=== PATIENT | male | born 1970 | race Caucasian/White ===

== ENCOUNTER 2017-12-01 09:43 | Day surgery (SDC) | payer MEDICAID ==
[~2017-12-01] VITALS: Ht 162.6 cm; Wt 83.5 kg
[2017-12-01 10:26] LABS: BASOPHILS % 0.6 % (0.0-2.0); EOSINOPHILS % 3.2 % (0.0-5.0); HEMATOCRIT. 43.3 % (42.0-52.0); HEMOGLOBIN. 14.8 g/dL (14.0-18.0); LYMPHOCYTES % 30.9 % (20.0-50.0); MEAN CORPUSCULAR HEMOGLOBIN 31.3 pg (28.0-32.0); MEAN CORPUSCULAR VOLUME 91.7 fL (80.0-94.0); MEAN PLATELET VOLUME 9.5 fl (7.4-10.4); MONOCYTES % 8.2 % (2.0-8.0); NEUTROPHILS % 57.1 % (40.0-76.0); PLATELET 79 x1000/uL (130-400); RED BLOOD CELL COUNT 4.72 mill/uL (4.7-6.1); RED CELL DISTRIBUTION WIDTH 14.1 % (11.6-14.6)
[2017-12-01 10:38] LABS: CHLORIDE 104 mEq/L (98-107); INR 1.2; PROTHROMBIN TIME 12.7 sec (9.4-11.6)
[2017-12-01] MEDS ORDERED: INSU100I24 SQ (11:00)
[2017-12-01] MEDS ORDERED: DEXT 5%/0.45% NACL 1000ML 1,000 ML IV SCH (11:30)
[2017-12-01] MEDS ORDERED: MIDAZOLAM HCL 5 MG/5 ML VIAL ONE (11:59)
[2017-12-01] MEDS ORDERED: HYDROMORPHONE HCL/PF 2MG/ML (OR) ONE (12:02)
[2017-12-01] MEDS ORDERED: SIMETHICONE 40 MG/0.6 ML 30ML ONE (12:04)
[2017-12-01] MEDS ORDERED: MIDAZOLAM HCL 2 MG/2 ML VIAL ONE (12:21)
[2017-12-01] MEDS ORDERED: SITA100T11 PO (13:46)
[2017-12-01] MEDS ORDERED: PROP10TA10 PO (13:46)
[2017-12-01] MEDS ORDERED: INSLIS SUBCUT (13:46)
== END 2017-12-01 16:00 | disposition home or self-care (01) ==
LOC: OR 09:43
PROVIDERS: ATTEND Internal Medicine Gastroenterology
DX: I85.00 Esophageal varices without bleeding (principal); K76.6 Portal hypertension; K31.89 Other diseases of stomach and duodenum; K29.60 Other gastritis without bleeding
CPT/HCPCS: 36415; 43239; 43244; 80048; 85025; 85610; 85730; 88305; 88312; 88313; 93005; J1170; J2250

== ENCOUNTER 2018-01-12 09:24 | Day surgery (SDC) | payer MEDICAID ==
[~2018-01-12] VITALS: Ht 162.6 cm; Wt 83.5 kg
[~2018-01-12 09:24] MED LIST: INSLIS SUBCUT; INSU100I24 SQ; PROP10TA10 PO; SITA100T11 PO
[2018-01-12 10:05] LABS: BASOPHILS % 0.6 % (0.0-2.0); EOSINOPHILS % 3.6 % (0.0-5.0); HEMATOCRIT. 42.7 % (42.0-52.0); HEMOGLOBIN. 14.7 g/dL (14.0-18.0); LYMPHOCYTES % 28.8 % (20.0-50.0); MEAN CORPUSCULAR HEMOGLOBIN 30.9 pg (28.0-32.0); MEAN CORPUSCULAR VOLUME 89.7 fL (80.0-94.0); MONOCYTES % 7.9 % (2.0-8.0); NEUTROPHILS % 59.1 % (40.0-76.0); PLATELET 72 x1000/uL (130-400); RED BLOOD CELL COUNT 4.76 mill/uL (4.7-6.1); RED CELL DISTRIBUTION WIDTH 13.9 % (11.6-14.6)
[2018-01-12 10:08] LABS: CHLORIDE 108 mEq/L (98-107)
[2018-01-12 10:11] LABS: INR 1.2; PARTIAL THROMBOPLASTIN TIME 29.4 sec (23.4-31.0); PROTHROMBIN TIME 12.5 sec (9.4-11.6)
[2018-01-12] MEDS ORDERED: SODIUM CHLORIDE 0.9% 1,000 ML IV SCH (10:15)
[2018-01-12] MEDS ORDERED: MIDAZOLAM HCL 2 MG/2 ML VIAL ONE ×2 (11:13→11:28)
[2018-01-12] MEDS ORDERED: FENTANYL CITRATE/PF 50MCG/ML 2ML VIAL ONE (11:13)
[2018-01-12] MEDS ORDERED: PROPOFOL 200MG/20ML VIAL IV ONE (11:13)
[2018-01-12] MEDS ORDERED: SIMETHICONE 40 MG/0.6 ML 30ML ONE (11:22)
[2018-01-12] MEDS ORDERED: SODIUM CHLORIDE 0.9% 1,000 ML IV ONE (11:54)
[2018-01-12] MEDS ORDERED: HYDROMORPHONE HCL/PF 2MG/ML CPJ IV PRN (12:00)
[2018-01-12] MEDS ORDERED: ONDANSETRON HCL 4MG/2ML VIAL IV PRN (12:00)
[2018-01-12 12:33] VITALS: BP 176/92
== END 2018-01-12 14:20 | disposition home or self-care (01) ==
LOC: OR 09:24
PROVIDERS: ATTEND Internal Medicine Gastroenterology
DX: I85.00 Esophageal varices without bleeding (principal); K76.6 Portal hypertension; K31.89 Other diseases of stomach and duodenum; K75.81 Nonalcoholic steatohepatitis (NASH); K74.69 Other cirrhosis of liver; B15.0 Hepatitis A with hepatic coma; Z83.3 Family history of diabetes mellitus; Z79.4 Long term (current) use of insulin; Z79.899 Other long term (current) drug therapy
CPT/HCPCS: 36415; 43244; 80048; 82962; 85025; 85610; 85730; 93005; J1170; J2250; J2405; J3010; J7030; J2704

== ENCOUNTER 2018-03-09 10:24 | Day surgery (SDC) | payer MEDICAID ==
[~2018-03-09] VITALS: Ht 162.6 cm; Wt 83.5 kg
[2018-03-09 11:18] LABS: BASOPHILS % 0.6 % (0.0-2.0); EOSINOPHILS % 3.3 % (0.0-5.0); HEMATOCRIT. 41.5 % (42.0-52.0); HEMOGLOBIN. 14.4 g/dL (14.0-18.0); LYMPHOCYTES % 29.3 % (20.0-50.0); MEAN CORPUSCULAR VOLUME 89.5 fL (80.0-94.0); MEAN PLATELET VOLUME 9.8 fl (7.4-10.4); NEUTROPHILS % 58.8 % (40.0-76.0); PLATELET 72 x1000/uL (130-400); RED BLOOD CELL COUNT 4.64 mill/uL (4.7-6.1); RED CELL DISTRIBUTION WIDTH 14.1 % (11.6-14.6)
[2018-03-09 11:26] LABS: CHLORIDE 105 mEq/L (98-107)
[2018-03-09 11:28] LABS: INR 1.2; PARTIAL THROMBOPLASTIN TIME 29.5 sec (23.4-31.0); PROTHROMBIN TIME 12.6 sec (9.4-11.6)
[2018-03-09] MEDS ORDERED: MIDAZOLAM HCL 5 MG/5 ML VIAL ONE (11:58)
[2018-03-09] MEDS ORDERED: PROPOFOL 200MG/20ML VIAL IV ONE (11:58)
[2018-03-09] MEDS ORDERED: SODIUM CHLORIDE 0.9% 1,000 ML IV NR (12:43)
[2018-03-09] MEDS ORDERED: ONDANSETRON HCL 4MG/2ML VIAL IV PRN (12:45)
[2018-03-09] MEDS ORDERED: HYDROMORPHONE HCL/PF 2MG/ML CPJ IV PRN (12:45)
[2018-03-09] MEDS ORDERED: IBUPROFEN 600MG TABLET PO NR (12:45)
[2018-03-09] MEDS ORDERED: ONDANSETRON HCL 4MG/2ML VIAL ONE (12:49)
[2018-03-09 14:15] VITALS: BP 190/113
== END 2018-03-09 15:45 | disposition home or self-care (01) ==
LOC: OR 10:24
PROVIDERS: ATTEND Internal Medicine Gastroenterology
DX: K76.6 Portal hypertension (principal); K31.89 Other diseases of stomach and duodenum; E11.9 Type 2 diabetes mellitus without complications; Z79.4 Long term (current) use of insulin; K74.69 Other cirrhosis of liver; Z79.899 Other long term (current) drug therapy; Z98.890 Other specified postprocedural states; Z84.89 Family history of other specified conditions
CPT/HCPCS: 36415; 43244; 80048; 82962; 85025; 85610; 85730; J1170; J2250; J2405; J7030; J2704

== ENCOUNTER 2018-04-27 08:57 | Day surgery (SDC) | payer MEDICAID ==
[~2018-04-27] VITALS: Ht 162.6 cm; Wt 83.5 kg
[~2018-04-27 08:57] MED LIST changes: +INSU100I28 SQ
[2018-04-27] MEDS ORDERED: SODIUM CHLORIDE 0.9% 1,000 ML IV SCH (10:00)
[2018-04-27 10:06] LABS: BASOPHILS % 0.7 % (0.0-2.0); EOSINOPHILS % 4.7 % (0.0-5.0); HEMATOCRIT. 41.1 % (42.0-52.0); LYMPHOCYTES % 31.1 % (20.0-50.0); MEAN CORPUSCULAR VOLUME 91.1 fL (80.0-94.0); MEAN PLATELET VOLUME 9.7 fl (7.4-10.4); MONOCYTES % 8.3 % (2.0-8.0); NEUTROPHILS % 55.2 % (40.0-76.0); PLATELET 76 x1000/uL (130-400); RED BLOOD CELL COUNT 4.51 mill/uL (4.7-6.1); RED CELL DISTRIBUTION WIDTH 14.2 % (11.6-14.6)
[2018-04-27 10:11] LABS: CHLORIDE 108 mEq/L (98-107)
[2018-04-27 10:15] LABS: INR 1.2; PARTIAL THROMBOPLASTIN TIME 29.6 sec (23.4-31.0); PROTHROMBIN TIME 12.7 sec (9.4-11.6)
[2018-04-27] MEDS ORDERED: OMEP40CA34 PO (10:20)
[2018-04-27] MEDS ORDERED: SUCR1TAB PO (10:20)
[2018-04-27] MEDS ORDERED: SIMETHICONE 40 MG/0.6 ML 30ML ONE (10:42)
[2018-04-27] MEDS ORDERED: MIDAZOLAM HCL 5 MG/5 ML VIAL ONE (12:18)
[2018-04-27] MEDS ORDERED: PROPOFOL 200MG/20ML VIAL IV ONE (12:18)
[2018-04-27] MEDS ORDERED: LIDOCAINE HCL/PF 1% 10 MG/ML 5ML VIAL ONE (12:20)
[2018-04-27] MEDS ORDERED: SODIUM CHLORIDE 0.9% 1,000 ML IV ONE (13:07)
[2018-04-27] MEDS ORDERED: ONDANSETRON HCL 4MG/2ML VIAL IV PRN (13:15)
[2018-04-27] MEDS ORDERED: HYDROMORPHONE HCL/PF 2MG/ML CPJ IV PRN (13:15)
[2018-04-27] MEDS ORDERED: METOCLOPRAMIDE HCL 10MG/2ML VIAL IV ONE (13:45)
[2018-04-27] MEDS ORDERED: METOCLOPRAMIDE HCL 10MG/2ML VIAL IV SCH (14:15)
== END 2018-04-27 13:55 | disposition home or self-care (01) ==
LOC: OR 08:57
PROVIDERS: ATTEND Internal Medicine Gastroenterology
DX: I85.10 Secondary esophageal varices without bleeding (principal); K76.6 Portal hypertension; K31.89 Other diseases of stomach and duodenum; K74.69 Other cirrhosis of liver; K21.9 Gastro-esophageal reflux disease without esophagitis; E11.9 Type 2 diabetes mellitus without complications; Z79.899 Other long term (current) drug therapy; Z79.4 Long term (current) use of insulin; Z98.890 Other specified postprocedural states; Z84.89 Family history of other specified conditions
CPT/HCPCS: 36415; 43244; 80053; 82105; 82962; 85025; 85610; 85730; J2250; J2405; J2765; J3490; J2704

== ENCOUNTER 2018-08-03 11:15 | Day surgery (SDC) | payer MEDICAID ==
[~2018-08-03] VITALS: Ht 162.6 cm; Wt 85.7 kg
[~2018-08-03 11:15] MED LIST changes: -INSU100I28 SQ; +OMEP40CA34 PO; +SODIUM CHLORIDE 0.9% 1,000 ML IV SCH; +SUCR1TAB PO
[2018-08-03] MEDS ORDERED: SIMETHICONE 40 MG/0.6 ML 30ML ONE (11:29)
[2018-08-03] MEDS ORDERED: PROPOFOL 200MG/20ML VIAL IV ONE (11:35)
[2018-08-03] MEDS ORDERED: INSU100I28 SQ (13:30)
[2018-08-03] MEDS ORDERED: ONDANSETRON HCL 4MG/2ML INJ IV PRN (14:00)
[2018-08-03] MEDS ORDERED: HYDROMORPHONE HCL/PF 2MG/ML CPJ IV PRN (14:00)
[2018-08-03] MEDS: FENTANYL CITRATE/PF 50MCG/ML 2ML VIAL IV PRN ×2 (14:24→17:13)
[2018-08-03] MEDS ORDERED: METOCLOPRAMIDE HCL 10MG/2ML VIAL IV NR (16:00)
[2018-08-03 17:13] VITALS: BP 168/86
== END 2018-08-03 19:00 | disposition home or self-care (01) ==
LOC: OR 11:15
PROVIDERS: ATTEND Internal Medicine Gastroenterology
DX: I85.00 Esophageal varices without bleeding (principal); K74.60 Unspecified cirrhosis of liver; K76.6 Portal hypertension; K31.89 Other diseases of stomach and duodenum; K21.9 Gastro-esophageal reflux disease without esophagitis; E11.9 Type 2 diabetes mellitus without complications
CPT/HCPCS: 43244; J2405; J2765; J3010; J7030; 82962; J2704

== ENCOUNTER 2018-12-07 09:30 | Day surgery (SDC) | payer MEDICAID ==
[~2018-12-07] VITALS: Ht 162.6 cm; Wt 85.7 kg
[~2018-12-07 09:30] MED LIST changes: -INSLIS SUBCUT; +INSU100I28 SQ; -SODIUM CHLORIDE 0.9% 1,000 ML IV SCH; -SUCR1TAB PO
[2018-12-07] MEDS ORDERED: SODIUM CHLORIDE 0.9% 1,000 ML IV SCH (11:00)
[2018-12-07] MEDS ORDERED: PROPOFOL 200MG/20ML VIAL IV ONE ×2 (13:09→13:26)
[2018-12-07] MEDS ORDERED: LIDOCAINE HCL/PF 1% 10 MG/ML 5ML VIAL ONE (13:10)
[2018-12-07] MEDS ORDERED: SIMV10TA6 PO (13:17)
[2018-12-07] MEDS ORDERED: GLYCOPYRROLATE 0.2 MG/ML 2ML VIAL ONE (13:20)
[2018-12-07] MEDS ORDERED: ONDANSETRON HCL 4MG/2ML INJ IV NR (14:38)
[2018-12-07] MEDS ORDERED: METOCLOPRAMIDE HCL 10MG/2ML VIAL IV NR (14:39)
[2018-12-07] MEDS ORDERED: FENTANYL CITRATE/PF 50MCG/ML 2ML VIAL IV PRN (14:45)
[2018-12-07 15:02] VITALS: BP 185/102
== END 2018-12-07 16:40 | disposition home or self-care (01) ==
LOC: OR 09:30
PROVIDERS: ATTEND Internal Medicine Gastroenterology
DX: I85.00 Esophageal varices without bleeding (principal); K76.6 Portal hypertension; K31.89 Other diseases of stomach and duodenum; K74.60 Unspecified cirrhosis of liver; K21.9 Gastro-esophageal reflux disease without esophagitis; E11.9 Type 2 diabetes mellitus without complications
CPT/HCPCS: 43244; 82962; J2405; J2704; J2765; J3010; J3490

== ENCOUNTER 2019-02-08 09:01 | Day surgery (SDC) | payer MEDICAID ==
[~2019-02-08] VITALS: Ht 162.6 cm; Wt 85.3 kg
[~2019-02-08 09:01] MED LIST changes: +LACTATED RINGERS 1,000 ML IV SCH; +SIMV10TA6 PO
[2019-02-08 09:53] LABS: BASOPHILS % 0.5 % (0.0-2.0); HEMATOCRIT. 45.9 % (42.0-52.0); HEMOGLOBIN. 15.5 g/dL (14.0-18.0); LYMPHOCYTES % 29.4 % (20.0-50.0); MEAN CORPUSCULAR HEMOGLOBIN 31.2 pg (28.0-32.0); MEAN CORPUSCULAR VOLUME 92.2 fL (80.0-94.0); MEAN PLATELET VOLUME 9.3 fl (7.4-10.4); MONOCYTES % 8.1 % (2.0-8.0); PLATELET 67 x1000/uL (130-400); RED BLOOD CELL COUNT 4.98 mill/uL (4.7-6.1); RED CELL DISTRIBUTION WIDTH 14.5 % (11.6-14.6)
[2019-02-08 10:01] LABS: CHLORIDE 108 mEq/L (98-107)
[2019-02-08 10:02] LABS: INR 1.3; PARTIAL THROMBOPLASTIN TIME 31.3 sec (23.4-31.0); PROTHROMBIN TIME 12.7 sec (9.6-11.0)
[2019-02-08] MEDS ORDERED: SODIUM CHLORIDE 0.9% 1,000 ML IV SCH (10:30)
[2019-02-08] MEDS ORDERED: MIDAZOLAM HCL 5 MG/5 ML VIAL ONE (11:08)
[2019-02-08] MEDS ORDERED: PROPOFOL 200MG/20ML VIAL IV ONE (11:08)
[2019-02-08] MEDS ORDERED: GLYCOPYRROLATE 0.2 MG/ML 2ML VIAL ONE (11:09)
[2019-02-08] MEDS ORDERED: LIDOCAINE HCL/PF 1% 10 MG/ML 5ML VIAL ONE (11:11)
[2019-02-08] MEDS ORDERED: SUCCINYLCHOLINE CHLORIDE 200MG/10ML IV ONE (11:12)
[2019-02-08] MEDS ORDERED: ONDANSETRON HCL 4MG/2ML INJ ONE (11:21)
[2019-02-08] MEDS ORDERED: SODIUM CHLORIDE 0.9% 1,000 ML IV ONE (11:33)
[2019-02-08] MEDS ORDERED: HYDROMORPHONE HCL/PF 2MG/ML CPJ IV PRN (11:45)
[2019-02-08] MEDS ORDERED: IBUPROFEN 600MG TABLET PO SCH (11:45)
[2019-02-08] MEDS ORDERED: ONDANSETRON HCL 4MG/2ML INJ IV PRN (11:45)
[2019-02-08] MEDS ORDERED: INSLIS SUBCUT (11:57)
== END 2019-02-08 14:30 | disposition home or self-care (01) ==
LOC: OR 09:01
PROVIDERS: ATTEND Internal Medicine Gastroenterology
DX: K29.30 Chronic superficial gastritis without bleeding (principal); K76.6 Portal hypertension; K31.89 Other diseases of stomach and duodenum; K74.60 Unspecified cirrhosis of liver; K75.81 Nonalcoholic steatohepatitis (NASH); R16.1 Splenomegaly, not elsewhere classified; D72.819 Decreased white blood cell count, unspecified; D69.6 Thrombocytopenia, unspecified; K29.80 Duodenitis without bleeding
CPT/HCPCS: 36415; 43239; 80048; 82962; 85025; 85610; 85730; 88305; 88312; 88313; 93005; J0330; J2250; J2405; J2704; J3490